=== PATIENT | male | born 1985 | race Caucasian/White ===

== ENCOUNTER 2018-10-08 00:23 | Emergency (ER) | payer SELFPAY ==
--- NOTE | 2018-10-08 00:31 | EDM.PDOC ---
ED HPI GENERAL MEDICAL PROBLEM - General Chief Complaint: ENT Problem Stated Complaint: right side tooth pain Time Seen by Provider: 10/08/18 00:25 Source of Information: Reports: Patient, Old Records ([facility] chart/EMR), Significant Other History Limitations: Reports: No Limitations - History of Present Illness INITIAL COMMENTS - FREE TEXT/NARRATIVE: The patient was brought to the emergency room via private automobile by his fiance for evaluation of 12/08 right lower dental pain with symptoms starting at about 21:30 hours. Symptoms have been refractory to OTC Orajel and ibuprofen with the patient taking 600 mg of ibuprofen at 2200 hrs. and 400 mg at 2300 hrs. this evening. No history of dental injury, however the patient overall has poor hygiene. No recent history of abdominal pain, heartburn, nausea, diarrhea, melena, gross hematochezia, or any food intolerance, including fatty foods, etc.. The patient also denies any recent fever, cough, wheezing, dyspnea, etc.. Onset: Gradual Onset Date: 10/07/18 Onset Time: 21:30 Duration: Constant, Getting Worse Location: Reports: Other (Dental pain as above). Denies: Head, Face, Neck, Chest, Abdomen, Back, Radiates to Quality: Reports: Ache, Same as Previous Episode, Throbbing Severity: Severe Improves with: Reports: None Worsens with: Reports: None Context: Reports: Other (As above). Denies: Sick Contact, Trauma Associated Symptoms: Denies: Confusion, Chest Pain, Cough, Diaphoresis, Fever/ Chills, Headaches, Loss of Appetite, Malaise, Nausea/Vomiting, Shortness of Breath, Syncope, Weakness Treatments INDUSTRIAL DESIGNER: Reports: NSAIDS (As above), Other Medication(s) (As above) Right Lower Oral/Mouth Pain Score (Numeric/FACES): 10 - Related Data Allergies Allergy/AdvReac Type Severity Reaction Status Date / Time No Known Allergies Allergy Verified 10/08/18 00:44 Home Meds: Home Meds Amoxicillin/Potassium Clav [Augmentin 875-125 Tablet] 1 each PO BIDMEALS #14 tablet 10/08/18 [Rx] Past Medical History HEENT History: Reports: Other (See Below) Other HEENT History: Multiple severe caries Musculoskeletal History: Reports: Fracture, Other (See Below) Other Musculoskeletal History: Right fifth proximal metatarsal fracture on 01/20. Right fifth metacarpal boxer's fracture on 02/12/05. Left distal radial fracture on 10/30/98. Social & Family History - Tobacco Use Smoking Status *Q: Current Every Day Smoker Tobacco Use Within Last Twelve Months: Cigarettes Years of Tobacco use: 15 Packs/Tins Daily: 1 Packs/Tins Daily Comment: Started smoking at age 18 with maximum use of 1.5 packs per day Used Tobacco, but Quit: No Smoking Cessation Information Provided To Patient: Yes Second Hand Smoke Exposure: Yes Source of Second Hand Smoke Exposure: Fiance Second Hand Smoke Education Provided: Yes - Living Situation & Occupation Living situation: Reports: with Significant Other Occupation: Employed ([employer]) ED ROS GENERAL - Review of Systems Review Of Systems: ROS reveals no pertinent complaints other than HPI. ED EXAM, GENERAL - Physical Exam Exam: See Below (Dentition in extremely poor repair with multiple broken teeth into the gumline with #6 right lower premolar showing localized tenderness and mild swelling with no discharge) Exam Limited By: No Limitations General Appearance: Alert, WD/WN, No Apparent Distress Eye Exam: Bilateral Eye: EOMI, Normal Inspection (No nystagmus), PERRL Ears: Normal External Exam, Normal Canal, Hearing Grossly Normal, Normal TMs Nose: Normal Inspection, Normal Mucosa, No Blood Throat/Mouth: Normal Lips, Normal Oropharynx, Normal Voice, No Airway Compromise. No: Normal Teeth (Multiple broken teeth into the gumline with caries in these areas but no local tenderness. Additional decayed tooth with mild localized swelling and moderate tenderness however no discharge in the right 6th lower premolar region), Normal Gums (As above), Dysphagia, Perioral Cyanosis Head: Atraumatic, Normocephalic. No: Facial Swelling, Facial Tenderness, Sinus Tenderness Neck: Normal Inspection, Supple, Non-Tender, Full Range of Motion. No: Lymphadenopathy (L), Lymphadenopathy (R), Thyromegaly Respiratory/Chest: No Respiratory Distress, Lungs Clear, Normal Breath Sounds, No Accessory Muscle Use, Chest Non-Tender. No: Pleural Rub, Retractions Cardiovascular: Normal Peripheral Pulses, Regular Rate, Rhythm, No Edema, No Gallop, No JVD, No Murmur, No Rub. No: Gallop/S3, Gallop/S4, Friction Rub Peripheral Pulses: 2+: Radial (L), Radial (R) GI/Abdominal: Normal Bowel Sounds, Soft, Non-Tender, No Organomegaly, No Distention, No Abnormal Bruit, No Mass, Other (Obese). No: Guarding (Male) Exam: Deferred Rectal (Males) Exam: Deferred Back Exam: Normal Inspection, Full Range of Motion. No: CVA Tenderness (L), CVA Tenderness (R), Muscle Spasm Extremities: Normal Inspection, Normal Range of Motion, Non-Tender, No Pedal Edema, Normal Capillary Refill. No: Paul's Sign Neurological: Alert, Oriented, CN II-XII Intact, Normal Cognition, Normal Gait, No Motor/Sensory Deficits Psychiatric: Normal Affect, Normal Mood Skin Exam: Warm, Dry, Intact, Normal Color, No Rash, Tattoo(s) (Multiple). No: Diaphoretic, Wound/Incision Lymphatic: No Adenopathy Course - Vital Signs Last Recorded V/S: Last Vital Signs Temp 36.3 C 10/08/18 00:34 Pulse 67 10/08/18 00:34 Resp 20 10/08/18 00:34 BP 113/84 10/08/18 00:34 Pulse Ox 96 10/08/18 00:34 Vital Signs - 24 hr 10/08/18 00:34 Temperature [ 36.3 C Temporal] Pulse, 67 Peripheral [ Left Pulse Oximetry] Respiratory 20 Rate Blood Pressure 113/84 [Left Upper Arm ] O2 Sat by Pulse 96 Oximetry - Orders/Labs/Meds Orders: Active Orders 24 hr Category Date Time Status Obtain Past Medical Record [OM.PC] Routine Oth 10/08/18 00:31 Active Labs: None Meds: Medications Discontinued Medications Generic Name Dose Route Start Last Admin Trade Name Yogesh PRN Reason Stop Dose Admin Ceftriaxone Sodium 1 gm 10/08/18 00:32 10/08/18 00:45 Rocephin IM 10/08/18 00:33 1 gm ONETIME ONE Administration Lidocaine HCl 0 ml 10/08/18 00:32 10/08/18 00:45 Xylocaine-Mpf 1% INJECT 10/08/18 00:33 5 ml ONETIME ONE Administration - Radiology Interpretation Free Text/Narrative:: None Departure - Departure Time of Disposition: 01:05 Disposition: Home, Self-Care 01 Condition: Good Clinical Impression: Dental abscess, Tobacco abuse counseling, Caries - Discharge Information *PRESCRIPTION DRUG MONITORING PROGRAM REVIEWED*: Not Applicable *COPY OF PRESCRIPTION DRUG MONITORING REPORT IN PATIENT DEVAN: Not Applicable Prescriptions: Amoxicillin/Potassium Clav [Augmentin 875-125 Tablet] 1 each PO BIDMEALS #14 tablet Instructions: Steps to Quit Smoking, [id number], Health Risks of Smoking, Dental Abscess Forms: ED Department Discharge Additional Instructions: 1. Follow-up with your dentist WILLIAM as discussed 2. Tylenol 650 mg by mouth every 4 hours and/or OTC ibuprofen 2-3 tabs by mouth every 6 hours with food as directed./needed. You may stagger these medications for 48-72 hours only, which essentially means that you are receiving a pain medication about every 2 hours. 3. You may use additional OTC Orajel as needed per labeled instructions 4. Listerine gargles four times per day, after meals and at bedtime, with additional Chloroseptic lozenges or spray as needed for 10 days and/or until symptoms resolve. 5. Stop all tobacco use WILLIAM as directed/per provided information and consider contacting Quit LIne, etc.. 6. Please remember that we are ALWAYS here for you and want to answer any questions you may have. Feel free to call the hospital any time and we call you back WILLIAM. 7. Immediately after this visit verify that your cellular telephone's voicemail has been activated and is empty. Also verify that your home telephone 's answering machine is operating properly and has space to receive messages. Note that it is sometimes necessary for us to be able to contact you at a later date to discuss your medical care. 8. Take all 10 days of your Augmentin therapy, including both the emergency room and additional pharmacy prescription, with diarrhea precautions with this medication 9. NEVER EXCEED THE RECOMMENDED DOSE OF MEDICINES, INCLUDING OTC MEDICINES, ETC. - Problem List & Annotations (1) Dental abscess SNOMED Code(s): 464910153 Code(s): K04.7 - PERIAPICAL ABSCESS WITHOUT SINUS Status: Acute Priority : High Onset Date: 10/08/18 Annotation/Comment:: IM Rocephin given. Compliance with medications including Augmentin 10 day course as per discharge instructions. Dental hygiene, risks of dental disease, etc. was extensively discussed. Follow-up with his dentist WILLIAM, although patient had planned to go on vacation in 3 days. He was also cautioned on the dangers of inappropriate use of OTC medications, etc. (2) Tobacco abuse counseling SNOMED Code(s): 590248955, 507569135, 482761668 Code(s): Z71.6 - TOBACCO ABUSE COUNSELING Status: Chronic Priority: Medium Annotation/Comment:: Tobacco cessation strongly encouraged with information provided at discharge. - Problem List Review Problem List Initiated/Reviewed/Updated: Yes - My Orders Last 24 Hours: My Active Orders 10/08/18 00:31 Obtain Past Medical Record [OM.PC] Routine - Assessment/Plan Last 24 Hours: My Active Orders 10/08/18 00:31 Obtain Past Medical Record [OM.PC] Routine Assessment:: As above Plan: As above. Extensive precautions were given to the patient and his fiance, who are in agreement with the treatment plan. See Patient Instructions for further treatment and plan.
[2018-10-08] MEDS ORDERED: cefTRIAXone 1 GM Vial IM ONE (00:32)
== END 2018-10-08 01:04 | disposition home or self-care (01) ==
LOC: LL.ED 00:23
DX: K04.7 Periapical abscess without sinus (principal); K02.9 Dental caries, unspecified; K03.81 Cracked tooth; E66.9 Obesity, unspecified; Z71.6 Tobacco abuse counseling; F17.210 Nicotine dependence, cigarettes, uncomplicated
CPT/HCPCS: 96372; 99282; J0696; J2001; 99283